=== PATIENT | male | born 1985 | race Caucasian/White ===

== ENCOUNTER 2016-07-02 03:05 | Inpatient (IN) | payer OTHER ==
[~2016-07-02] VITALS: Ht 182.9 cm; Wt 65.5 kg
[2016-07-02] VITALS (20 sets, daily range): BP systolic 129–164; BP diastolic 66–92
[~2016-07-02 03:05] MED LIST: ANAPROX DS550 M1 PO; CLEOCIN150 MG PO; KEFLEX500 MG PO; NO MEDS; NOHOMEMEDS
[2016-07-02 03:37] LABS: MCH 31.5 PG (29.0-34.0); MCHC 33.6 G/DL (30.0-36.0); MCV 93.8 FL (86-99); MEAN PLAT.VOLUME 12.3 uM^3 (9.0-12.4); PLATELET COUNT 251 K/uL (156-360); RBC DIS.WIDTH-CV 13.7 % (11.8-14.6); RBC DIS.WIDTH-SD 44.9 % (39-53); WHITE BLOOD COUNT 15.2 K/uL (4.1-10.2)
[2016-07-02 03:44] LABS: CHLORIDE 106 mEq/L (99-109); SODIUM 140 mEq/L (136-147)
[2016-07-02 03:46] LABS: GLUCOSE 177 mg/dL (70-99)
[2016-07-02 03:47] LABS: ANION GAP 27 MEQ/L (2-14)
[2016-07-02 03:49] LABS: SERUM ETHYL ALCOHOL < 10 mg/dL
[2016-07-02 03:50] LABS: GFR ESTIMATE (CALCULATED) > 59 mL/min/
[2016-07-02 03:51] LABS: UREA NITROGEN (BUN) 11 mg/dL (9-23)
[2016-07-02 03:52] LABS: CREATINE KINASE 112 IU/L (1-294); TOTAL CK 112 IU/L (1-294)
[2016-07-02 05:21] LABS: BASE EXCESS -9.7 mEq/L (-3 to +3); BICARBONATE 19.3 mEq/L (22-26); CARBOXY HGB 4.7 % (0-5); FI02 50 %; MECHANICAL RATE 16 resp/min; METHEMOGLOBIN 1.2 % (0-1.5); MODE AC; PCO2 53 mm Hg (35-45); PEEP 5 CM/H20; PO2 169 mm Hg (80-100); TIDAL VOLUME 400 ML; TOTAL RESP RATE 16 resp/min; pH 7.17 (7.35-7.45)
[2016-07-02 05:22] LABS: DEVICE PB840; SITE LR
[2016-07-02 05:29] LABS: TOTAL BILIRUBIN 0.4 mg/dL (0.0-1.0)
[2016-07-02 05:30] LABS: ALKALINE PHOSPHATASE 64 IU/L (3-129)
[2016-07-02 05:33] LABS: DIRECT BILIRUBIN 0.2 mg/dL (0.0-0.3)
[2016-07-02 05:40] LABS: AMPHETAMINE NEGATIVE (500 ng/mL); BARBITURATES NEGATIVE (200 ng/mL); BENZODIAZEPINES NEGATIVE (150 ng/mL); COCAINE NEGATIVE (150 ng/mL); INTERNAL CONTROLS VALID? YES; METHADONE NEGATIVE (200 ng/mL); METHAMPHETAMINE NEGATIVE (500 ng/mL); OPIATES (MORPHINE) NEGATIVE (100 ng/mL); OXYCODONE NEGATIVE (100 ng/mL); PHENCYCLIDINE NEGATIVE (25 ng/mL); PROPOXYPHENE NEGATIVE (300 ng/mL); THC CANNABINOIDS NEGATIVE (50 ng/mL); TRICYCLIC ANTIDEPRESSANTS NEGATIVE (300 ng/mL)
[2016-07-02 05:59] LABS: INTER. NORMALIZED RATIO 1.1; PROTHROMBIN TIME 10.8 (9.2-11.2); PTT 25.4 (25-32)
[2016-07-02 06:14] LABS: BASE EXCESS -6.4 mEq/L (-3 to +3); BICARBONATE 20.2 mEq/L (22-26); METHEMOGLOBIN 1.4 % (0-1.5); PCO2 43 mm Hg (35-45); PO2 93 mm Hg (80-100); pH 7.28 (7.35-7.45)
[2016-07-02 06:15] LABS: COMMENTS - BLOOD GASES A+C+; DEVICE VENT; FI02 50 %; MECHANICAL RATE 20 resp/min; MODE A/C; PEEP 5 CM/H20; SITE LR; TIDAL VOLUME 400 ML; TOTAL RESP RATE 27 resp/min
[2016-07-02 06:16] LABS: MAGNESIUM 2.4 mg/dL (1.3-2.7)
[2016-07-02 07:03] LABS: POINT-OF-CARE METER ID UU14174217
[2016-07-02 07:09] LABS: METH RESISTANT S AUREUS PCR NEGATIVE (NEGATIVE)
[2016-07-02 07:14] LABS: ANION GAP 15 MEQ/L (2-14); CHLORIDE 102 MEQ/L (99-109); POTASSIUM 4.3 MEQ/L (3.7-5.4); SAMPLE HEMOLYSIS CHECK 1; SAMPLE ICTERIC CHECK 0; SAMPLE LIPEMIA CHECK 0; SODIUM 133 MEQ/L (136-147)
[2016-07-02 07:15] LABS: PROBE CHECK PASS; SPECIMEN PROCESSING CONTROL PASS
[2016-07-02 07:20] LABS: GFR ESTIMATE (CALCULATED) > 59 mL/min/; GLUCOSE 169 mg/dL (70-99); UREA NITROGEN (BUN) 10 mg/dL (9-23)
[2016-07-02 12:33] LABS: POINT-OF-CARE METER ID UU14174217
[2016-07-02 12:36] LABS: BASE EXCESS -1.5 mEq/L (-3 to +3); BICARBONATE 19.2 mEq/L (22-26); CARBOXY HGB 1.7 % (0-5); METHEMOGLOBIN 1.9 % (0-1.5)
[2016-07-02 13:06] LABS: PCO2 23 mm Hg (35-45); PO2 185 mm Hg (80-100); SITE LR; pH 7.53 (7.35-7.45)
[2016-07-02 13:07] LABS: COMMENTS - BLOOD GASES A+C+; DEVICE VENT; FI02 50 %; MECHANICAL RATE 30 resp/min; MODE AC; PEEP 5 CM/H20; TIDAL VOLUME 500 ML; TOTAL RESP RATE 30 resp/min
[2016-07-02 13:40] LABS: ANION GAP 13 MEQ/L (2-14); CHLORIDE 106 MEQ/L (99-109); GFR ESTIMATE (CALCULATED) > 59 mL/min/; POTASSIUM 4.1 MEQ/L (3.7-5.4); SAMPLE HEMOLYSIS CHECK 0; SAMPLE ICTERIC CHECK 0; SAMPLE LIPEMIA CHECK 0; SODIUM 138 MEQ/L (136-147); UREA NITROGEN (BUN) 11 mg/dL (9-23)
[2016-07-02 13:48] LABS: GLUCOSE 93 mg/dL (70-99)
[2016-07-02 16:42] LABS: BICARBONATE 20.9 mEq/L (22-26); CARBOXY HGB 1.6 % (0-5); METHEMOGLOBIN 1.9 % (0-1.5); pH 7.45 (7.35-7.45)
[2016-07-02 16:43] LABS: COMMENTS - BLOOD GASES A+C+; DEVICE 840; FI02 24 %; MECHANICAL RATE 24 resp/min; MODE AC; PCO2 30 mm Hg (35-45); PEEP 5 CM/H20; PO2 99 mm Hg (80-100); SITE RR; TIDAL VOLUME 500 ML; TOTAL RESP RATE 26 resp/min
[2016-07-02 18:30] LABS: POINT-OF-CARE METER ID UU14174217
[2016-07-02 21:42] LABS: ADD MIUA? YES; BILIRUBIN NEGATIVE; BLOOD MODERATE; COLOR YELLOW ((YELLOW)); GLUCOSE (STRIP) NEGATIVE; KETONES NEGATIVE; LEUKOCYTES NEGATIVE; NITRITE NEGATIVE; PH, URINE 5.5 (5-8); PROTEIN (STRIP) NEGATIVE; SPECIFIC GRAVITY 1.013 (1.000-1.030); UROBILINOGEN 0.2 MG/DL (0.2-1.0)
[2016-07-02 22:05] LABS: BACTERIA 1+ /HPF; CASTS NONE SEEN /LPF; CRYSTALS NONE SEEN; EPITHELIAL CELLS RARE /HPF; MUCUS RARE /LPF; WHITE BLOOD CELLS 0-5 /HPF (0-5)
[2016-07-03] VITALS (24 sets, daily range): BP systolic 95–159; BP diastolic 43–97
[2016-07-03 02:56] LABS: POINT-OF-CARE METER ID UU14174217
[2016-07-03 05:25] LABS: HEMATOCRIT 45.4 % (38.0-50.0); MCH 30.8 PG (29.0-34.0); MCHC 34.1 G/DL (30.0-36.0); MCV 90.1 FL (86-99); RBC DIS.WIDTH-CV 14.1 % (11.8-14.6); RED BLOOD COUNT 5.04 M/uL (4.00-5.50); WHITE BLOOD COUNT 15.5 K/uL (4.1-10.2)
[2016-07-03 05:52] LABS: ALKALINE PHOSPHATASE 55 IU/L (3-129); ANION GAP 15 MEQ/L (2-14); CHLORIDE 104 MEQ/L (99-109); GFR ESTIMATE (CALCULATED) > 59 mL/min/; GLUCOSE 96 mg/dL (70-99); POTASSIUM 4.5 MEQ/L (3.7-5.4); SAMPLE HEMOLYSIS CHECK 0; SAMPLE ICTERIC CHECK 0; SAMPLE LIPEMIA CHECK 0; SODIUM 139 MEQ/L (136-147); TOTAL BILIRUBIN 1.2 MG/DL (0.0-1.0); UREA NITROGEN (BUN) 12 mg/dL (9-23)
[2016-07-03 06:43] LABS: HEMATOLOGY COMMENT 1 SMEAR COMPATIBLE; MEAN PLAT.VOLUME 12.4 uM^3 (9.0-12.4)
[2016-07-03 06:45] LABS: PLATELET COUNT 172 K/uL (156-360)
[2016-07-03 08:14] LABS: INFLUENZA A VIRAL ANTIGEN NEGATIVE; INFLUENZA B VIRAL ANTIGEN NEGATIVE
[2016-07-03 12:59] LABS: POINT-OF-CARE METER ID UU14162636
[2016-07-03 18:26] LABS: POINT-OF-CARE METER ID UU14174217
[2016-07-03 23:19] LABS: POINT-OF-CARE METER ID UU14162636
[2016-07-04] VITALS (24 sets, daily range): BP systolic 102–147; BP diastolic 52–97
[2016-07-04 05:43] LABS: EOSINOPHIL (%) 0.6 % (0-5); EOSINOPHIL COUNT 0.1 K/uL (0-0.3); HEMATOCRIT 34.6 % (38.0-50.0); IMMATURE GRANULOCYTE (%) 0.2 % (0.0-0.7); LYMPHOCYTE COUNT 1.4 K/uL (1.0-2.8); MCH 30.3 PG (29.0-34.0); MCHC 33.5 G/DL (30.0-36.0); MCV 90.3 FL (86-99); MEAN PLAT.VOLUME 12.1 uM^3 (9.0-12.4); MONOCYTE (%) 5.5 % (3-12); MONOCYTE COUNT 0.7 K/uL (0-0.8); NEUTROPHIL (%) 81.8 % (45-76); NEUTROPHIL COUNT 9.8 K/uL (1.8-6.4); PLATELET COUNT 139 K/uL (156-360); RBC DIS.WIDTH-CV 14.1 % (11.8-14.6); RBC DIS.WIDTH-SD 46.7 % (39-53)
[2016-07-04 05:44] LABS: RED BLOOD COUNT 3.83 M/uL (4.00-5.50)
[2016-07-04 06:16] LABS: ALKALINE PHOSPHATASE 48 IU/L (3-129); ANION GAP 9 MEQ/L (2-14); CHLORIDE 111 MEQ/L (99-109); GFR ESTIMATE (CALCULATED) > 59 mL/min/; GLUCOSE 100 mg/dL (70-99); SAMPLE HEMOLYSIS CHECK 0; SAMPLE ICTERIC CHECK 0; SAMPLE LIPEMIA CHECK 0; SODIUM 140 MEQ/L (136-147); TOTAL BILIRUBIN 1.1 MG/DL (0.0-1.0); UREA NITROGEN (BUN) 12 mg/dL (9-23)
[2016-07-05] VITALS (24 sets, daily range): BP systolic 128–169; BP diastolic 73–98
[2016-07-05 08:13] LABS: ANION GAP 12 MEQ/L (2-14); CHLORIDE 106 MEQ/L (99-109); POTASSIUM 3.9 MEQ/L (3.7-5.4); SAMPLE HEMOLYSIS CHECK 0; SAMPLE ICTERIC CHECK 0; SAMPLE LIPEMIA CHECK 0; SODIUM 141 MEQ/L (136-147)
[2016-07-05 08:19] LABS: GFR ESTIMATE (CALCULATED) > 59 mL/min/; GLUCOSE 83 mg/dL (70-99); UREA NITROGEN (BUN) 9 mg/dL (9-23)
[2016-07-06] VITALS (15 sets, daily range): BP systolic 132–162; BP diastolic 62–96
[2016-07-07] VITALS (19 sets, daily range): BP systolic 130–171; BP diastolic 75–116
[2016-07-07 06:08] LABS: EOSINOPHIL (%) 1.2 % (0-5); EOSINOPHIL COUNT 0.1 K/uL (0-0.3); IMMATURE GRANULOCYTE (%) 0.3 % (0.0-0.7); LYMPHOCYTE COUNT 1.1 K/uL (1.0-2.8); MCH 30.6 PG (29.0-34.0); MCV 87.4 FL (86-99); MONOCYTE (%) 8.5 % (3-12); MONOCYTE COUNT 0.9 K/uL (0-0.8); NEUTROPHIL (%) 79.7 % (45-76); NEUTROPHIL COUNT 8.9 K/uL (1.8-6.4); RBC DIS.WIDTH-CV 12.9 % (11.8-14.6); RBC DIS.WIDTH-SD 41.4 % (39-53); RED BLOOD COUNT 3.89 M/uL (4.00-5.50); WHITE BLOOD COUNT 11.1 K/uL (4.1-10.2)
[2016-07-07 06:33] LABS: ANION GAP 12 MEQ/L (2-14); CHLORIDE 100 MEQ/L (99-109); GFR ESTIMATE (CALCULATED) > 59 mL/min/; GLUCOSE 102 mg/dL (70-99); POTASSIUM 3.7 MEQ/L (3.7-5.4); SAMPLE HEMOLYSIS CHECK 0; SAMPLE ICTERIC CHECK 0; SAMPLE LIPEMIA CHECK 0; SODIUM 136 MEQ/L (136-147); UREA NITROGEN (BUN) 7 mg/dL (9-23)
[2016-07-07 06:35] LABS: MEAN PLAT.VOLUME 11.1 uM^3 (9.0-12.4)
[2016-07-07 06:37] LABS: PLATELET COUNT 197 K/uL (156-360)
[2016-07-08] VITALS (19 sets, daily range): BP systolic 114–155; BP diastolic 56–111
[2016-07-08 09:25] LABS: EOSINOPHIL (%) 2.5 % (0-5); EOSINOPHIL COUNT 0.3 K/uL (0-0.3); HEMATOCRIT 34.9 % (38.0-50.0); IMMATURE GRANULOCYTE (%) 0.2 % (0.0-0.7); LYMPHOCYTE COUNT 1.3 K/uL (1.0-2.8); MCH 31.1 PG (29.0-34.0); MCHC 35.8 G/DL (30.0-36.0); MCV 86.8 FL (86-99); MEAN PLAT.VOLUME 10.9 uM^3 (9.0-12.4); MONOCYTE (%) 8.3 % (3-12); NEUTROPHIL (%) 77.9 % (45-76); NEUTROPHIL COUNT 9.5 K/uL (1.8-6.4); PLATELET COUNT 231 K/uL (156-360); RBC DIS.WIDTH-SD 41.4 % (39-53); RED BLOOD COUNT 4.02 M/uL (4.00-5.50); WHITE BLOOD COUNT 12.2 K/uL (4.1-10.2)
[2016-07-09] VITALS (7 sets, daily range): BP systolic 133–154; BP diastolic 93–108
[2016-07-09] MEDS ORDERED: TYLENOL EXTRA500 MG PO (09:32)
== END 2016-07-09 19:00 | disposition left against medical advice (07) | DRG 85 ==
LOC: EME 03:05 → EDOF 05:02 → 4WEST 05:02 → 3EAST 07-09 15:54
PROVIDERS: Emergency Medicine; Internal Medicine Critical Care Medicine; Internal Medicine Pulmonary Disease; Obstetrics & Gynecology; Surgery
DX: S06.5X0A Traumatic subdural hemorrhage without loss of consciousness, initial encounter (principal); R56.9 Unspecified convulsions; J96.01 Acute respiratory failure with hypoxia; J18.9 Pneumonia, unspecified organism; E87.2 Acidosis; X31.XXXA Exposure to excessive natural cold, initial encounter; S01.91XA Laceration without foreign body of unspecified part of head, initial encounter; W19.XXXD Unspecified fall, subsequent encounter; T68.XXXA Hypothermia, initial encounter; R41.82 Altered mental status, unspecified; R00.1 Bradycardia, unspecified; E78.1 Pure hyperglyceridemia; D72.829 Elevated white blood cell count, unspecified; Z59.0 Homelessness; F32.9 Major depressive disorder, single episode, unspecified; G89.29 Other chronic pain; Z72.89 Other problems related to lifestyle; R50.9 Fever, unspecified; R45.1 Restlessness and agitation; I10 Essential (primary) hypertension; F10.10 Alcohol abuse, uncomplicated; F12.10 Cannabis abuse, uncomplicated; Z79.4 Long term (current) use of insulin; Z88.8 Allergy status to other drugs, medicaments and biological substances; Z87.828 Personal history of other (healed) physical injury and trauma; R45.87 Impulsiveness; Y92.89 Other specified places as the place of occurrence of the external cause; Y99.8 Other external cause status
CPT/HCPCS: 36600; 70450; 70551; 71010; 72100; 72125; 80048; 80048 91; 80053; 80076; 81003; 82330; 82550; 82553; 82803; 82948; 83605; 83735; 84100; 85025; 85027; 85610; 85730; 87040; 87070; 87086; 87177; 87205; 87502; 87641; 93005; 94002; 94003; 94640; 94640 76; 94667; 94668; 94760; 94799; 99202; 99281; 99285; G0480; J0696; J1200; J1630; J1815; J1953; J2060; J2250; J2405; J2543; J2704; J3010; J3486; J7030; J7050; S0028

== ENCOUNTER 2016-07-11 12:43 | Inpatient (IN) | payer OTHER ==
[~2016-07-11] VITALS: Ht 182.9 cm; Wt 68.2 kg
[~2016-07-11 12:43] MED LIST changes: +TYLENOL EXTRA500 MG PO
[2016-07-11 13:45] LABS: COCAINE NEGATIVE (150 ng/mL); PHENCYCLIDINE NEGATIVE (25 ng/mL); THC CANNABINOIDS PRESUMPTIVE POSITIVE (50 ng/mL)
[2016-07-11 13:46] LABS: ADD MEDTOX COMMENT Y; AMPHETAMINE NEGATIVE (500 ng/mL); BARBITURATES NEGATIVE (200 ng/mL); BENZODIAZEPINES NEGATIVE (150 ng/mL); INTERNAL CONTROLS VALID? YES; METHADONE NEGATIVE (200 ng/mL); METHAMPHETAMINE NEGATIVE (500 ng/mL); OPIATES (MORPHINE) NEGATIVE (100 ng/mL); OXYCODONE NEGATIVE (100 ng/mL); PROPOXYPHENE NEGATIVE (300 ng/mL); TRICYCLIC ANTIDEPRESSANTS NEGATIVE (300 ng/mL)
[2016-07-11 14:10] LABS: HEMATOCRIT 44.1 % (38.0-50.0); MCH 30.3 PG (29.0-34.0); MCHC 33.6 G/DL (30.0-36.0); MCV 90.2 FL (86-99); MEAN PLAT.VOLUME 10.4 uM^3 (9.0-12.4); RBC DIS.WIDTH-CV 13.3 % (11.8-14.6); RBC DIS.WIDTH-SD 43.3 % (39-53); WHITE BLOOD COUNT 14.3 K/uL (4.1-10.2)
[2016-07-11 14:11] LABS: PLATELET COUNT 435 K/uL (156-360); RED BLOOD COUNT 4.89 M/uL (4.00-5.50)
[2016-07-11 14:20] LABS: CHLORIDE 104 mEq/L (99-109); SODIUM 141 mEq/L (136-147)
[2016-07-11 14:22] LABS: GLUCOSE 94 mg/dL (70-99)
[2016-07-11 14:23] LABS: ANION GAP 10 MEQ/L (2-14)
[2016-07-11 14:25] LABS: SERUM ETHYL ALCOHOL < 10 mg/dL
[2016-07-11 14:26] LABS: GFR ESTIMATE (CALCULATED) > 59 mL/min/
[2016-07-11 14:27] LABS: UREA NITROGEN (BUN) 10 mg/dL (9-23)
[2016-07-11 17:44] VITALS: BP 144/87
[2016-07-11 17:49] VITALS: BP 143/77
[2016-07-11 18:21] VITALS: BP 144/87
[2016-07-12 07:54] VITALS: BP 142/89
[2016-07-12 15:20] VITALS: BP 157/82
[2016-07-13 07:23] VITALS: BP 138/102
[2016-07-13 12:00] VITALS: BP 136/90
[2016-07-13 15:34] VITALS: BP 134/92
[2016-07-14 07:46] VITALS: BP 139/79
[2016-07-14] MEDS ORDERED: TOPIRAMATE25 MG PO (09:52)
[2016-07-14] MEDS ORDERED: DIVALPROEX SOD500 MG PO (09:52)
[2016-07-14] MEDS ORDERED: OLANZAPINE10 MG PO (09:52)
[2016-07-14] MEDS ORDERED: SUMATRIPTAN SU100 MG PO (09:52)
[2016-07-14 10:35] LABS: HEMATOCRIT 45.1 % (38.0-50.0); MCH 30.6 PG (29.0-34.0); MCHC 34.1 G/DL (30.0-36.0); MCV 89.7 FL (86-99); RBC DIS.WIDTH-CV 13.9 % (11.8-14.6); RBC DIS.WIDTH-SD 44.8 % (39-53); RED BLOOD COUNT 5.03 M/uL (4.00-5.50); WHITE BLOOD COUNT 15.9 K/uL (4.1-10.2)
[2016-07-14 10:36] LABS: MEAN PLAT.VOLUME 10.2 uM^3 (9.0-12.4); PLATELET COUNT 581 K/uL (156-360)
== END 2016-07-14 11:49 | disposition home or self-care (01) | DRG 897 ==
LOC: EME 12:43 → 1WEST 15:58 → EDOF 15:58 → 1WEST 15:58
PROVIDERS: Emergency Medicine; Nurse Practitioner Adult Health
DX: F16.150 Hallucinogen abuse with hallucinogen-induced psychotic disorder with delusions (principal); F11.20 Opioid dependence, uncomplicated; R56.9 Unspecified convulsions; F12.10 Cannabis abuse, uncomplicated; S06.5X9D Traumatic subdural hemorrhage with loss of consciousness of unspecified duration, subsequent encounter; W19.XXXD Unspecified fall, subsequent encounter; G43.909 Migraine, unspecified, not intractable, without status migrainosus; F32.9 Major depressive disorder, single episode, unspecified; R03.0 Elevated blood-pressure reading, without diagnosis of hypertension; D72.829 Elevated white blood cell count, unspecified; Z59.0 Homelessness; G44.309 Post-traumatic headache, unspecified, not intractable
CPT/HCPCS: 70450; 80048; 80164; 84999; 85027; 99281; 99285; G0480; J1630; J2060; Q0177

== ENCOUNTER 2017-04-24 17:39 | Inpatient (IN) | payer OTHER ==
[~2017-04-24] VITALS: Ht 180.3 cm; Wt 65.9 kg
[~2017-04-24 17:39] MED LIST changes: +DIVALPROEX SOD500 MG PO; +OLANZAPINE10 MG PO; +SUMATRIPTAN SU100 MG PO; +TOPIRAMATE25 MG PO
[2017-04-24 18:33] LABS: HEMATOCRIT 51.7 % (38.0-50.0); MCH 30.8 PG (29.0-34.0); MCHC 33.8 G/DL (30.0-36.0); MCV 90.9 FL (86-99); PLATELET COUNT 277 K/uL (156-360); RBC DIS.WIDTH-CV 13.2 % (11.8-14.6); RED BLOOD COUNT 5.69 M/uL (4.00-5.50)
[2017-04-24 18:42] LABS: CHLORIDE 106 mEq/L (99-109); POTASSIUM 4.3 mEq/L (3.7-5.4); SODIUM 139 mEq/L (136-147)
[2017-04-24 18:43] LABS: GLUCOSE 90 mg/dL (70-99)
[2017-04-24 18:45] LABS: ANION GAP 10 MEQ/L (2-14)
[2017-04-24 18:47] LABS: GFR ESTIMATE (CALCULATED) > 59 mL/min/; SERUM ETHYL ALCOHOL < 10 mg/dL
[2017-04-24 18:48] LABS: UREA NITROGEN (BUN) 9 mg/dL (9-23)
[2017-04-24 19:25] LABS: ADD MEDTOX COMMENT Y; AMPHETAMINE NEGATIVE (500 ng/mL); BARBITURATES NEGATIVE (200 ng/mL); BENZODIAZEPINES NEGATIVE (150 ng/mL); COCAINE NEGATIVE (150 ng/mL); INTERNAL CONTROLS VALID? YES; METHADONE NEGATIVE (200 ng/mL); METHAMPHETAMINE NEGATIVE (500 ng/mL); OPIATES (MORPHINE) PRESUMPTIVE POSITIVE (100 ng/mL); OXYCODONE NEGATIVE (100 ng/mL); PHENCYCLIDINE NEGATIVE (25 ng/mL); PROPOXYPHENE NEGATIVE (300 ng/mL); THC CANNABINOIDS PRESUMPTIVE POSITIVE (50 ng/mL); TRICYCLIC ANTIDEPRESSANTS NEGATIVE (300 ng/mL)
[2017-04-24] MEDS ORDERED: TRAZODONE HCL50 MG PO (21:02)
[2017-04-24] MEDS ORDERED: RISPERIDONE0.25 MG PO (21:02)
[2017-04-25 00:20] VITALS: BP 121/81
[2017-04-25 07:54] VITALS: BP 101/64
[2017-04-25 16:26] VITALS: BP 122/69
[2017-04-26 07:56] VITALS: BP 109/58
[2017-04-26] MEDS ORDERED: DIVALPROEX SOD250 MG PO (11:43)
== END 2017-04-26 11:53 | disposition home or self-care (01) | DRG 897 ==
LOC: EME 17:39 → 1WEST 20:02 → EDOF 20:02 → ENRESERV 22:34 → 1WEST 04-25 00:17
PROC: HZ2ZZZZ Detoxification Services for Substance Abuse Treatment (ICD-10-PCS; principal; 2017-04-24)
DX: F11.24 Opioid dependence with opioid-induced mood disorder (principal); F11.23 Opioid dependence with withdrawal; R45.851 Suicidal ideations; F12.90 Cannabis use, unspecified, uncomplicated
CPT/HCPCS: 80048; 84999; 85027; 90839; 97150 GO; 99281; 99285; G0480; Q0177

== ENCOUNTER 2017-05-11 11:01 | Emergency (ER) | payer OTHER ==
[~2017-05-11] VITALS: Ht 180.3 cm; Wt 64.0 kg
[~2017-05-11 11:01] MED LIST changes: +DIVALPROEX SOD250 MG PO; +RISPERIDONE0.25 MG PO; +TRAZODONE HCL50 MG PO
[2017-05-11 12:05] LABS: EOSINOPHIL (%) 2.5 % (0-5); EOSINOPHIL COUNT 0.2 K/uL (0-0.3); HEMATOCRIT 47.9 % (38.0-50.0); IMMATURE GRANULOCYTE (%) 0.2 % (0.0-0.7); INSTRUMENT ABS NEUTROPHIL CT 6.1 K/uL; LYMPHOCYTE COUNT 1.4 K/uL (1.0-2.8); MCHC 35.1 G/DL (30.0-36.0); MCV 88.4 FL (86-99); MEAN PLAT.VOLUME 11.2 uM^3 (9.0-12.4); MONOCYTE (%) 9.2 % (3-12); MONOCYTE COUNT 0.8 K/uL (0-0.8); NEUTROPHIL (%) 71.1 % (45-76); NEUTROPHIL COUNT 6.1 K/uL (1.8-6.4); PLATELET COUNT 257 K/uL (156-360); RBC DIS.WIDTH-SD 42.2 % (39-53); RED BLOOD COUNT 5.42 M/uL (4.00-5.50); WHITE BLOOD COUNT 8.6 K/uL (4.1-10.2)
[2017-05-11 12:19] LABS: CHLORIDE 96 mEq/L (99-109); POTASSIUM 3.6 mEq/L (3.7-5.4); SODIUM 137 mEq/L (136-147)
[2017-05-11 12:21] LABS: GLUCOSE 98 mg/dL (70-99)
[2017-05-11 12:22] LABS: ANION GAP 13 MEQ/L (2-14)
[2017-05-11 12:24] LABS: GFR ESTIMATE (CALCULATED) > 59 mL/min/ (58.99-99999)
[2017-05-11 12:25] LABS: UREA NITROGEN (BUN) 21 mg/dL (9-23)
[2017-05-11] MEDS ORDERED: TYLENOL WITH C1 EACH PO (14:02)
[2017-05-11 14:36] VITALS: BP 152/89
== END 2017-05-11 14:38 | disposition home or self-care (01) ==
LOC: EME 11:01
PROVIDERS: Emergency Medicine
DX: S20.229A Contusion of unspecified back wall of thorax, initial encounter (principal); S40.012A Contusion of left shoulder, initial encounter; S60.221A Contusion of right hand, initial encounter; R07.89 Other chest pain; M54.2 Cervicalgia; V86.56XA Driver of dirt bike or motor/cross bike injured in nontraffic accident, initial encounter; F17.200 Nicotine dependence, unspecified, uncomplicated
CPT/HCPCS: 70450; 71260; 72125; 72129; 72132; 73030; 73130; 74177; 80048; 85025; J7030

== ENCOUNTER 2017-07-04 21:11 | Emergency (ER) | payer OTHER ==
[~2017-07-04] VITALS: Ht 177.8 cm; Wt 68.7 kg
[~2017-07-04 21:11] MED LIST changes: +TYLENOL WITH C1 EACH PO
[2017-07-04 22:02] LABS: HEMATOCRIT 43.9 % (38.0-50.0); HEMOGLOBIN 15.1 G/DL (12.5-16.6); MCH 30.9 PG (29.0-34.0); MCHC 34.4 G/DL (30.0-36.0); MCV 89.8 FL (86-99); RBC DIS.WIDTH-CV 13.8 % (11.8-14.6); RBC DIS.WIDTH-SD 45.1 % (39-53); RED BLOOD COUNT 4.89 M/uL (4.00-5.50); WHITE BLOOD COUNT 18.3 K/uL (4.1-10.2)
[2017-07-04 22:11] LABS: CHLORIDE 103 mEq/L (99-109); POTASSIUM 4.5 mEq/L (3.7-5.4); SODIUM 137 mEq/L (136-147)
[2017-07-04 22:13] LABS: GLUCOSE 99 mg/dL (70-99)
[2017-07-04 22:17] LABS: CREATININE 0.8 mg/dL (0.6-1.3); GFR ESTIMATE (CALCULATED) > 59 mL/min/ (58.99-99999)
[2017-07-04 22:18] LABS: UREA NITROGEN (BUN) 10 mg/dL (9-23)
[2017-07-04 22:19] LABS: CREATINE KINASE 308 IU/L (1-294); TOTAL CK 308 IU/L (1-294)
[2017-07-04 22:27] LABS: CK-MB 1.8 ng/mL (0.0-4.9); CKMB RELATIVE INDEX 0.6 (0.0-3.9)
[2017-07-04 22:33] LABS: PLAT.SUFFICIENCY ADEQUATE; PLATELET COUNT 260 K/uL (156-360)
[2017-07-04 23:00] LABS: VALPROIC ACID (DEPAKOTE) 19.5 MCG/ML (50-100)
[2017-07-05 00:32] LABS: APPEARANCE SL.HAZY ((CLEAR)); BILIRUBIN NEGATIVE; BLOOD NEGATIVE; COLOR YELLOW ((YELLOW)); GLUCOSE (STRIP) NEGATIVE; KETONES NEGATIVE; LEUKOCYTES NEGATIVE; NITRITE NEGATIVE; PROTEIN (STRIP) NEGATIVE; SPECIFIC GRAVITY 1.012 (1.000-1.030); UROBILINOGEN 0.2 MG/DL (0.2-1.0)
[2017-07-05 00:34] LABS: BACTERIA NONE SEEN /HPF; EPITHELIAL CELLS RARE /HPF; MUCUS TRACE /LPF; RED BLOOD CELLS 0-5 /HPF (0-5); UCUL ADDED? NO; WHITE BLOOD CELLS 0-5 /HPF (0-5)
[2017-07-05 01:21] VITALS: BP 119/78
== END 2017-07-05 01:21 | disposition home or self-care (01) ==
LOC: EME 21:11
PROVIDERS: Nurse Practitioner Family
DX: R55 Syncope and collapse (principal); G93.89 Other specified disorders of brain; J45.909 Unspecified asthma, uncomplicated; F17.200 Nicotine dependence, unspecified, uncomplicated; Z87.820 Personal history of traumatic brain injury
CPT/HCPCS: 70450; 80048; 80164; 81003; 82550; 82553; 85027; 99281; 99285

== ENCOUNTER 2017-07-22 19:17 | Inpatient (IN) | payer OTHER ==
[~2017-07-22] VITALS: Ht 182.9 cm; Wt 65.5 kg
[2017-07-22 21:22] LABS: ALBUMIN 4.3 g/dL (3.2-4.8); CHLORIDE 105 mEq/L (99-109); POTASSIUM 3.6 mEq/L (3.7-5.4); SODIUM 138 mEq/L (136-147)
[2017-07-22 21:25] LABS: GLUCOSE 99 mg/dL (70-99); TOTAL PROTEIN 6.8 g/dL (6.4-8.3)
[2017-07-22 21:26] LABS: TOTAL BILIRUBIN 0.9 mg/dL (0.0-1.0)
[2017-07-22 21:27] LABS: SERUM ETHYL ALCOHOL < 10 mg/dL
[2017-07-22 21:28] LABS: ALKALINE PHOSPHATASE 64 IU/L (3-129); CREATININE 0.8 mg/dL (0.6-1.3); GFR ESTIMATE (CALCULATED) > 59 mL/min/ (58.99-99999); HEMATOCRIT 41.2 % (38.0-50.0); HEMOGLOBIN 14.3 G/DL (12.5-16.6); MCH 31.4 PG (29.0-34.0); MCHC 34.7 G/DL (30.0-36.0); MCV 90.5 FL (86-99); RBC DIS.WIDTH-CV 14.1 % (11.8-14.6); RBC DIS.WIDTH-SD 47.1 % (39-53); RED BLOOD COUNT 4.55 M/uL (4.00-5.50); WHITE BLOOD COUNT 12.9 K/uL (4.1-10.2)
[2017-07-22 21:29] LABS: UREA NITROGEN (BUN) 10 mg/dL (9-23)
[2017-07-22 21:30] LABS: AST (GOT) 17 IU/L (2-34)
[2017-07-22 21:31] LABS: ALT (GPT) 14 IU/L (3-49)
[2017-07-22 22:10] LABS: HEMATOLOGY COMMENT 1 SN; PLAT.SUFFICIENCY ADEQUATE; PLATELET COUNT 242 K/uL (156-360)
[2017-07-22 22:27] LABS: VALPROIC ACID (DEPAKOTE) < 10.0 MCG/ML (50-100)
[2017-07-23] MEDS ORDERED: RISPERIDONE0.25 MG PO (00:06)
[2017-07-23] MEDS ORDERED: TRAZODONE HCL50 MG PO (00:06)
[2017-07-23 00:14] LABS: COCAINE PRESUMPTIVE POSITIVE (150 ng/mL); PHENCYCLIDINE NEGATIVE (25 ng/mL); THC CANNABINOIDS PRESUMPTIVE POSITIVE (50 ng/mL)
[2017-07-23 00:15] LABS: AMPHETAMINE NEGATIVE (500 ng/mL); BARBITURATES NEGATIVE (200 ng/mL); BENZODIAZEPINES PRESUMPTIVE POSITIVE (150 ng/mL); BUPRENORPHINE NEGATIVE (10 ng/mL); METHADONE NEGATIVE (200 ng/mL); METHAMPHETAMINE NEGATIVE (500 ng/mL); OPIATES (MORPHINE) NEGATIVE (100 ng/mL); OXYCODONE PRESUMPTIVE POSITIVE (100 ng/mL); PROPOXYPHENE NEGATIVE (300 ng/mL); TRICYCLIC ANTIDEPRESSANTS NEGATIVE (300 ng/mL)
[2017-07-23 00:45] LABS: BENZODIAZEPINES, URINE SCREEN Negative (200 ng/mL)
[2017-07-23 00:55] VITALS: BP 121/70
[2017-07-23 07:28] VITALS: BP 98/52
[2017-07-23 15:22] VITALS: BP 136/74
[2017-07-23 20:57] VITALS: BP 150/79
[2017-07-24 07:25] VITALS: BP 109/58
[2017-07-24 14:59] LABS: C DIFF TOXIN NEGATIVE (NEGATIVE)
[2017-07-24 15:30] VITALS: BP 145/55
[2017-07-25 07:41] VITALS: BP 112/56
[2017-07-25] MEDS ORDERED: DIVALPROEX SOD500 M1 PO (10:10)
[2017-07-25] MEDS ORDERED: RISPERIDONE0.5 MG PO (10:10)
== END 2017-07-25 11:00 | disposition home or self-care (01) | DRG 885 ==
LOC: EME 19:17 → EDOF 22:09 → ENRESERV 23:36 → 1WEST 07-23 00:20
PROVIDERS: Emergency Medicine; Psychiatry & Neurology Psychiatry
DX: F25.0 Schizoaffective disorder, bipolar type (principal); R45.851 Suicidal ideations; F11.14 Opioid abuse with opioid-induced mood disorder; F12.10 Cannabis abuse, uncomplicated; J45.909 Unspecified asthma, uncomplicated; F17.210 Nicotine dependence, cigarettes, uncomplicated; Z87.820 Personal history of traumatic brain injury
CPT/HCPCS: 80053; 80164; 84999; 85027; 87493; 90839; 97150 GO; 97165 GO; 99281; 99285; G0480; Q0177

== ENCOUNTER 2017-11-16 03:05 | Emergency (ER) | payer OTHER ==
[~2017-11-16 03:05] MED LIST changes: +DIVALPROEX SOD500 M1 PO; +RISPERIDONE0.5 MG PO
[2017-11-16 03:18] LABS: BASOPHIL (%) 0.4 % (0-1); BASOPHIL COUNT 0.1 K/uL (0-0.1); EOSINOPHIL (%) 1.5 % (0-5); EOSINOPHIL COUNT 0.2 K/uL (0-0.3); HEMATOCRIT 47.1 % (38.0-50.0); HEMOGLOBIN 16.5 G/DL (12.5-16.6); IMMATURE GRANULOCYTE (%) 0.3 % (0.0-0.7); LYMPHOCYTE (%) 13.2 % (15-42); LYMPHOCYTE COUNT 1.9 K/uL (1.0-2.8); MCH 31.7 PG (29.0-34.0); MCV 90.4 FL (86-99); MONOCYTE (%) 6.9 % (3-12); NEUTROPHIL (%) 77.7 % (45-76); NEUTROPHIL COUNT 11.1 K/uL (1.8-6.4); PLATELET COUNT 239 K/uL (156-360); RBC DIS.WIDTH-CV 13.5 % (11.8-14.6); RBC DIS.WIDTH-SD 44.8 % (39-53); RED BLOOD COUNT 5.21 M/uL (4.00-5.50); WHITE BLOOD COUNT 14.3 K/uL (4.1-10.2)
[2017-11-16 03:30] LABS: AMYLASE 43 IU/L (1-118); CHLORIDE 98 mEq/L (99-109); SODIUM 140 mEq/L (136-147)
[2017-11-16 03:32] LABS: GLUCOSE 109 mg/dL (70-99)
[2017-11-16 03:35] LABS: GFR ESTIMATE (CALCULATED) > 59 mL/min/ (58.99-99999); SERUM ETHYL ALCOHOL < 10 mg/dL
[2017-11-16 03:36] LABS: UREA NITROGEN (BUN) 15 mg/dL (9-23)
[2017-11-16 03:38] LABS: LIPASE 13 U/L (1.0-51.0)
== END 2017-11-16 05:52 | disposition home or self-care (01) ==
LOC: TRA 03:05
PROVIDERS: Emergency Medicine
DX: S80.211A Abrasion, right knee, initial encounter (principal); S06.0X0A Concussion without loss of consciousness, initial encounter; S20.211A Contusion of right front wall of thorax, initial encounter; V86.59XA Driver of other special all-terrain or other off-road motor vehicle injured in nontraffic accident, initial encounter; M54.2 Cervicalgia; M54.9 Dorsalgia, unspecified; Z91.040 Latex allergy status
CPT/HCPCS: 70450; 71045; 71260; 72125; 72129; 72132; 73560; 74177; 80048; 81003; 82150; 83690; 85025; 86850; 86900; 86901; G0480